=== PATIENT | female | born 1975 | race African-American/Black ===

== ENCOUNTER 2017-10-30 20:36 | Emergency (ER) | payer SELFPAY ==
[~2017-10-30] VITALS: Ht 170.2 cm; Wt 65.9 kg
[2017-10-30 20:43] VITALS: Ht 170.2 cm; Wt 65.9 kg
[2017-10-31] MEDS ORDERED: EC-NAPROSYN500 MG PO (01:34)
[2017-10-31] MEDS ORDERED: CYCLOBENZAPRINE10 MG PO (01:34)
[2017-10-31 02:07] VITALS: BP 138/71
== END 2017-10-31 02:08 | disposition home or self-care (01) ==
LOC: D.ER 20:36
DX: S46.911A Strain of unspecified muscle, fascia and tendon at shoulder and upper arm level, right arm, initial encounter (principal); V43.52XA Car driver injured in collision with other type car in traffic accident, initial encounter; Y93.89 Activity, other specified; Y92.410 Unspecified street and highway as the place of occurrence of the external cause; F17.200 Nicotine dependence, unspecified, uncomplicated